=== PATIENT | female | born 1965 | race Caucasian/White ===

== ENCOUNTER 2017-11-19 15:22 | Inpatient (IN) | payer BC ==
[~2017-11-19] VITALS: Ht 172.7 cm; Wt 107.0 kg
[2017-11-19 15:53] VITALS: BP_SYST 125
[2017-11-19] MEDS ORDERED: NACL 0.9% 1,000 ML IV ONE (16:15)
[2017-11-19] MEDS ORDERED: ONDANSETRON HCL 4 MG/2 ML VIAL IVP ONE (16:15)
[2017-11-19] MEDS ORDERED: MORPHINE 2 MG/ML INJ. SYRINGE IVP ONE (16:15)
[2017-11-19 16:55] LABS: EOSINOPHILS # (AUTO) 0.2 K/uL (0.0-0.4); HEMOGLOBIN 15.5 g/dL (12.0-16.0)
[2017-11-19 17:00] LABS: RED BLOOD CELL COUNT(AUTO) 5.24 MIL/uL (4.2-6.2); WHITE BLOOD COUNT (AUTO) 17.6 K/uL (4.8-10.8)
[2017-11-19 17:01] LABS: HEMATOCRIT 46.3 % (36-48); MEAN CORPUSCULAR HEMOGLOBIN 30 pg (27-31); MEAN CORPUSCULAR HGB CONC 34 % (32-36); MEAN CORPUSCULAR VOLUME 88 fL (79.0-98.0); NEUTROPHILS % (AUTO) 73.1 % (40.0-70.0); PLATELET COUNT (AUTO) 391 K/uL (130-430); RED CELL DISTRIBUTION WIDTH 12.9 % (9.0-15.0)
[2017-11-19 17:02] LABS: BASOPHILS % (AUTO) 0.2 % (0.0-2.0); EOSINOPHILS % (AUTO) 1.3 % (0.0-4.0); LYMPHOCYTES # (AUTO) 3.6 K/uL (1.0-5.5); LYMPHOCYTES % (AUTO) 20.6 % (20.5-51.5); MONOCYTES # (AUTO) 0.8 K/uL (0.0-1.0); MONOCYTES % (AUTO) 4.8 % (1.7-9.3)
[2017-11-19 17:06] LABS: CALCIUM 8.7 mg/dL (8.4-11.0); CREATININE 1.34 mg/dL (0.55-1.30)
[2017-11-19 17:10] LABS: TOTAL BILIRUBIN 0.2 mg/dL (0.0-1.0)
[2017-11-19 17:15] LABS: POTASSIUM 2.7 mmol/L (3.5-5.1)
[2017-11-19] MEDS ORDERED: KCL 20 mEq in NS 1000 mL 1,000 ML IV ONE (17:30)
[2017-11-19] MEDS ORDERED: AMIT75TA2 PO (17:47)
[2017-11-19] MEDS ORDERED: LOSA50TA3 PO (17:47)
[2017-11-19] MEDS ORDERED: CEVI30CA4 PO (17:47)
[2017-11-19] MEDS ORDERED: [UNRECOGNIZED DRUG - OTHER] PO (17:47)
[2017-11-19] MEDS ORDERED: BUPR300T55 PO (17:47)
[2017-11-19] MEDS ORDERED: LEVO125T8 PO (17:47)
[2017-11-19] MEDS ORDERED: OMEP40CA33 PO (17:47)
[2017-11-19] MEDS ORDERED: HYDR25TA4 PO (17:47)
[2017-11-19] MEDS ORDERED: TOPI200T PO (17:47)
[2017-11-19] MEDS ORDERED: BECL10.62 IH (17:47)
[2017-11-19 18:14] LABS: BILIRUBIN,URINE NEGATIVE (NEGATIVE); BLOOD, URINE NEGATIVE (NEGATIVE); CLARITY/URINE HAZY (CLEAR); COLOR,URINE YELLOW (YELLOW); GLUCOSE,URINE NEGATIVE (NEGATIVE); KETONES,URINE TRACE (NEGATIVE); LEUKOCYTE ESTERASE ,URINE 1+ (NEGATIVE); NITRITE, URINE NEGATIVE (NEGATIVE); PH,URINE 5.5 (5.0-8.0); PROTEIN URINE NEGATIVE (NEGATIVE); UROBILINOGEN,URINE 0.2 (0.2-1.0)
[2017-11-19 18:29] LABS: BACTERIA,URINE FEW /HPF (None Seen); RBC,URINE 0-3 /HPF (0-3)
[2017-11-19 18:30] LABS: MUCUS,URINE None Seen /LPF (None Seen)
[2017-11-19] MEDS ORDERED: POTASSIUM CHLORIDE 20 MEQ/PKT PACKET PO ONE (18:30)
[2017-11-19 18:42] VITALS: BP_SYST 131
[2017-11-19] MEDS ORDERED: MORPHINE 2 MG/ML INJ. SYRINGE IVP PRN (19:30)
[2017-11-19 19:50] VITALS: BP_SYST 106
[2017-11-19] MEDS ORDERED: ALBUTEROL MDI INHALATION 8 GM INH INH PRN (20:30)
[2017-11-19] MEDS: LEVOFLOXACIN 500 MG/D5W 100 ML IV SCH (20:55)
[2017-11-19] MEDS: TOPIRAMATE 100 MG TABLET(Topamax) PO SCH (20:55)
[2017-11-19] MEDS ORDERED: AMITRIPTYLINE HCL 10 MG TABLET (ELAVIL) ONE (20:58)
[2017-11-19] MEDS ORDERED: AMITRIPTYLINE HCL 10 MG TABLET (ELAVIL) PO ONE (22:00)
[2017-11-19] MEDS: metroNIDAZOLE 500 mg/NS 100 ML IV SCH (22:36)
[2017-11-20 00:45] VITALS: BP_SYST 106
[2017-11-20] MEDS: LEVOTHYROXINE SODIUM 0.125 MG TABLET PO SCH (06:33)
[2017-11-20] MEDS: metroNIDAZOLE 500 mg/NS 100 ML IV SCH ×3 (06:34→21:57)
[2017-11-20] MEDS: HYDROmorphone 1 MG INJ. 1 MG/ML AMPUL IVP PRN ×2 (06:40→10:48)
[2017-11-20 06:57] LABS: BASOPHILS % (AUTO) 0.6 % (0.0-2.0); EOSINOPHILS # (AUTO) 0.3 K/uL (0.0-0.4); EOSINOPHILS % (AUTO) 3.9 % (0.0-4.0); HEMATOCRIT 37.6 % (36-48); HEMOGLOBIN 13.1 g/dL (12.0-16.0); LYMPHOCYTES # (AUTO) 2.4 K/uL (1.0-5.5); LYMPHOCYTES % (AUTO) 32.7 % (20.5-51.5); MEAN CORPUSCULAR HEMOGLOBIN 32 pg (27-31); MEAN CORPUSCULAR HGB CONC 35 % (32-36); MEAN CORPUSCULAR VOLUME 91 fL (79.0-98.0); MONOCYTES # (AUTO) 0.4 K/uL (0.0-1.0); MONOCYTES % (AUTO) 6.1 % (1.7-9.3); NEUTROPHILS # (AUTO) 4.2 K/uL (1.8-7.7); NEUTROPHILS % (AUTO) 56.7 % (40.0-70.0); PLATELET COUNT (AUTO) 242 K/uL (130-430); RED BLOOD CELL COUNT(AUTO) 4.12 MIL/uL (4.2-6.2); RED CELL DISTRIBUTION WIDTH 12.9 % (9.0-15.0); WHITE BLOOD COUNT (AUTO) 7.3 K/uL (4.8-10.8)
[2017-11-20 07:02] LABS: BILIRUBIN,DIRECT 0.1 mg/dL (0.0-0.3); CREATININE 1.03 mg/dL (0.55-1.30); POTASSIUM 3.6 mmol/L (3.5-5.1); THYROID STIMULATING HORMONE 1.48 uIu/mL (0.34-4.82); TOTAL BILIRUBIN 0.3 mg/dL (0.0-1.0)
[2017-11-20 08:00] VITALS: BP_SYST 126
[2017-11-20] MEDS: PANTOPRAZOLE SODIUM 40 MG/VIAL (PROTONIX) IVP SCH (08:24)
[2017-11-20] MEDS: TOPIRAMATE 100 MG TABLET(Topamax) PO SCH ×2 (08:25→20:24)
[2017-11-20] MEDS: LOSARTAN POTASSIUM 50 MG TABLET (COZAAR) PO SCH (08:25)
[2017-11-20] MEDS: buPROPion HCL 150 MG XL TAB PO SCH (08:25)
[2017-11-20] MEDS ORDERED: DIATR MEGLU/DIATRIZ SOD 30 ML SOLUTION PO ONE (09:34)
[2017-11-20] MEDS ORDERED: IOHEXOL 100 ML IV ONE (12:16)
[2017-11-20] MEDS: KCL 20 mEq in NS 1000 mL 1,000 ML IV SCH ×3 (14:20→21:56)
[2017-11-20] MEDS: EXCEDRIN EXTRA STRENGTH PO PRN (14:22)
[2017-11-20 14:24] VITALS: BP_SYST 122
[2017-11-20 15:58] VITALS: BP_SYST 113
[2017-11-20] MEDS: ONDANSETRON HCL 4 MG/2 ML VIAL IVP PRN (17:55)
[2017-11-20] MEDS: HYDROcodone/ACETAMIN 5-325 MG TAB (NORCO/ VICODIN) PO PRN (17:56)
[2017-11-20 20:00] VITALS: BP_SYST 111
[2017-11-20] MEDS: LEVOFLOXACIN 500 MG/D5W 100 ML IV SCH (20:25)
[2017-11-20] MEDS ORDERED: AMITRIPTYLINE HCL 10 MG TABLET (ELAVIL) ONE ×2 (21:51→21:54)
[2017-11-20] MEDS ORDERED: AMITRIPTYLINE HCL 25 MG TABLET (ELAVIL) ONE (21:55)
[2017-11-20] MEDS: AMITRIPTYLINE HCL 10 MG TABLET (ELAVIL) PO SCH (22:00)
[2017-11-21 00:33] VITALS: BP_SYST 100
[2017-11-21 04:00] VITALS: BP_SYST 108
[2017-11-21] MEDS: metroNIDAZOLE 500 mg/NS 100 ML IV SCH ×2 (05:23→14:50)
[2017-11-21] MEDS: LEVOTHYROXINE SODIUM 0.125 MG TABLET PO SCH (06:05)
[2017-11-21] MEDS: HYDROcodone/ACETAMIN 5-325 MG TAB (NORCO/ VICODIN) PO PRN ×3 (06:06→15:58)
[2017-11-21 07:08] LABS: PROTHROMBIN TIME 10.2 SECS (9.5-12.5)
[2017-11-21 07:16] LABS: CREATININE 0.96 mg/dL (0.55-1.30); POTASSIUM 3.8 mmol/L (3.5-5.1)
[2017-11-21 07:17] LABS: BASOPHILS % (AUTO) 0.6 % (0.0-2.0); EOSINOPHILS # (AUTO) 0.3 K/uL (0.0-0.4); EOSINOPHILS % (AUTO) 3.9 % (0.0-4.0); HEMOGLOBIN 12.8 g/dL (12.0-16.0); LYMPHOCYTES # (AUTO) 2.4 K/uL (1.0-5.5); LYMPHOCYTES % (AUTO) 34.2 % (20.5-51.5); MEAN CORPUSCULAR HEMOGLOBIN 31 pg (27-31); MEAN CORPUSCULAR HGB CONC 34 % (32-36); MEAN CORPUSCULAR VOLUME 91 fL (79.0-98.0); MONOCYTES # (AUTO) 0.4 K/uL (0.0-1.0); MONOCYTES % (AUTO) 5.9 % (1.7-9.3); NEUTROPHILS % (AUTO) 55.4 % (40.0-70.0); PLATELET COUNT (AUTO) 238 K/uL (130-430); RED BLOOD CELL COUNT(AUTO) 4.17 MIL/uL (4.2-6.2); RED CELL DISTRIBUTION WIDTH 12.9 % (9.0-15.0); WHITE BLOOD COUNT (AUTO) 7.1 K/uL (4.8-10.8)
[2017-11-21 08:20] VITALS: BP_SYST 122
[2017-11-21] MEDS: KCL 20 mEq in NS 1000 mL 1,000 ML IV SCH ×2 (08:40→18:04)
[2017-11-21] MEDS: TOPIRAMATE 100 MG TABLET(Topamax) PO SCH ×2 (08:41→20:53)
[2017-11-21] MEDS: buPROPion HCL 150 MG XL TAB PO SCH (08:41)
[2017-11-21] MEDS: LOSARTAN POTASSIUM 50 MG TABLET (COZAAR) PO SCH (08:42)
[2017-11-21] MEDS: PANTOPRAZOLE SODIUM 40 MG/VIAL (PROTONIX) IVP SCH (08:43)
[2017-11-21] MEDS: ONDANSETRON HCL 4 MG/2 ML VIAL IVP PRN ×2 (10:17→18:47)
[2017-11-21 11:26] VITALS: BP_SYST 120
[2017-11-21 15:54] VITALS: BP_SYST 104
[2017-11-21] MEDS ORDERED: GOLYTELY / COLYTE SOLUTION 4 LITERS PO ONE (18:00)
[2017-11-21 20:00] VITALS: BP_SYST 125
[2017-11-21] MEDS: LORazepam 2 MG/ML VIAL IM PRN (20:52)
[2017-11-21] MEDS: AMITRIPTYLINE HCL 10 MG TABLET (ELAVIL) PO SCH (20:53)
[2017-11-21] MEDS: LEVOFLOXACIN 500 MG/D5W 100 ML IV SCH (20:53)
[2017-11-22 00:10] VITALS: BP_SYST 133
[2017-11-22] MEDS: metroNIDAZOLE 500 mg/NS 100 ML IV SCH ×4 (01:16→21:37)
[2017-11-22] MEDS: KCL 20 mEq in NS 1000 mL 1,000 ML IV SCH ×3 (06:13→19:45)
[2017-11-22] MEDS: LEVOTHYROXINE SODIUM 0.125 MG TABLET PO SCH (06:14)
[2017-11-22] MEDS ORDERED: MIDAZOLAM HCL 5 MG/5 ML VIAL ONE (06:16)
[2017-11-22] MEDS ORDERED: SIMETHICONE 40 MG/0.6 ML ML ONE ×2 (06:17→06:30)
[2017-11-22 07:04] LABS: PROTHROMBIN TIME 10.4 SECS (9.5-12.5)
[2017-11-22] MEDS: MIDAZOLAM HCL 5 MG/5 ML VIAL ONE ×4 (07:12→07:20)
[2017-11-22] MEDS: MEPERIDINE HCL/PF 100 MG/ML AMP ONE ×3 (07:12→07:20)
[2017-11-22 07:13] LABS: CREATININE 1.04 mg/dL (0.55-1.30); POTASSIUM 3.4 mmol/L (3.5-5.1)
[2017-11-22 08:30] VITALS: BP_SYST 120
[2017-11-22] MEDS: MILK OF MAGNESIA 30 ML UDC PO SCH ×2 (09:00→11:00)
[2017-11-22] MEDS: TOPIRAMATE 100 MG TABLET(Topamax) PO SCH ×2 (09:47→21:01)
[2017-11-22] MEDS: PANTOPRAZOLE SODIUM 40 MG/VIAL (PROTONIX) IVP SCH (09:47)
[2017-11-22] MEDS: LOSARTAN POTASSIUM 50 MG TABLET (COZAAR) PO SCH (09:48)
[2017-11-22] MEDS: buPROPion HCL 150 MG XL TAB PO SCH (09:48)
[2017-11-22] MEDS: EXCEDRIN EXTRA STRENGTH PO PRN (11:17)
[2017-11-22 11:22] VITALS: BP_SYST 124
[2017-11-22] MEDS: HYDROcodone/ACETAMIN 5-325 MG TAB (NORCO/ VICODIN) PO PRN (13:29)
[2017-11-22] MEDS: ONDANSETRON HCL 4 MG/2 ML VIAL IVP PRN ×2 (14:59→19:44)
[2017-11-22 15:39] VITALS: BP_SYST 122
[2017-11-22] MEDS ORDERED: POTASSIUM CHLORIDE 20 MEQ TAB.PRT.SR PO ONE (16:30)
[2017-11-22 16:49] LABS: BASOPHILS # (AUTO) 0.1 K/uL (0.0-0.2); BASOPHILS % (AUTO) 1.2 % (0.0-2.0); EOSINOPHILS # (AUTO) 0.3 K/uL (0.0-0.4); EOSINOPHILS % (AUTO) 3.7 % (0.0-4.0); HEMATOCRIT 38.1 % (36-48); HEMOGLOBIN 12.6 g/dL (12.0-16.0); LYMPHOCYTES # (AUTO) 2.7 K/uL (1.0-5.5); LYMPHOCYTES % (AUTO) 34.1 % (20.5-51.5); MEAN CORPUSCULAR HEMOGLOBIN 30 pg (27-31); MEAN CORPUSCULAR HGB CONC 33 % (32-36); MEAN CORPUSCULAR VOLUME 91 fL (79.0-98.0); MONOCYTES # (AUTO) 0.5 K/uL (0.0-1.0); MONOCYTES % (AUTO) 6.1 % (1.7-9.3); NEUTROPHILS # (AUTO) 4.4 K/uL (1.8-7.7); NEUTROPHILS % (AUTO) 54.9 % (40.0-70.0); PLATELET COUNT (AUTO) 260 K/uL (130-430); RED BLOOD CELL COUNT(AUTO) 4.21 MIL/uL (4.2-6.2); RED CELL DISTRIBUTION WIDTH 13.4 % (9.0-15.0)
[2017-11-22] MEDS: LORazepam 2 MG/ML VIAL IM PRN (19:44)
[2017-11-22 20:00] VITALS: BP_SYST 122
[2017-11-22] MEDS: LEVOFLOXACIN 500 MG/D5W 100 ML IV SCH (20:59)
[2017-11-22] MEDS: AMITRIPTYLINE HCL 10 MG TABLET (ELAVIL) PO SCH (21:01)
[2017-11-23 00:11] VITALS: BP_SYST 126
[2017-11-23] MEDS: ONDANSETRON HCL 4 MG/2 ML VIAL IVP PRN ×4 (01:35→20:42)
[2017-11-23] MEDS: metroNIDAZOLE 500 mg/NS 100 ML IV SCH ×3 (05:18→22:06)
[2017-11-23] MEDS: LEVOTHYROXINE SODIUM 0.125 MG TABLET PO SCH (06:16)
[2017-11-23 07:08] LABS: CALCIUM 8.1 mg/dL (8.4-11.0); POTASSIUM 3.6 mmol/L (3.5-5.1)
[2017-11-23 07:15] LABS: BASOPHILS # (AUTO) 0.2 K/uL (0.0-0.2); BASOPHILS % (AUTO) 2.3 % (0.0-2.0); EOSINOPHILS # (AUTO) 0.3 K/uL (0.0-0.4); HEMATOCRIT 37.4 % (36-48); HEMOGLOBIN 12.8 g/dL (12.0-16.0); LYMPHOCYTES # (AUTO) 2.6 K/uL (1.0-5.5); LYMPHOCYTES % (AUTO) 36.1 % (20.5-51.5); MEAN CORPUSCULAR HEMOGLOBIN 31 pg (27-31); MEAN CORPUSCULAR HGB CONC 34 % (32-36); MEAN CORPUSCULAR VOLUME 91 fL (79.0-98.0); MONOCYTES # (AUTO) 0.5 K/uL (0.0-1.0); MONOCYTES % (AUTO) 6.6 % (1.7-9.3); NEUTROPHILS # (AUTO) 3.7 K/uL (1.8-7.7); PLATELET COUNT (AUTO) 242 K/uL (130-430); RED BLOOD CELL COUNT(AUTO) 4.12 MIL/uL (4.2-6.2); WHITE BLOOD COUNT (AUTO) 7.3 K/uL (4.8-10.8)
[2017-11-23] MEDS ORDERED: KCL 20 mEq in 100 mL (PREMIX) 100 ML IV ONE (07:30)
[2017-11-23 08:00] VITALS: BP_SYST 129
[2017-11-23] MEDS: KCL 20 mEq in NS 1000 mL 1,000 ML IV SCH ×2 (08:36→18:02)
[2017-11-23] MEDS: LORazepam 2 MG/ML VIAL IM PRN (08:37)
[2017-11-23] MEDS: buPROPion HCL 150 MG XL TAB PO SCH (08:37)
[2017-11-23] MEDS: PANTOPRAZOLE SODIUM 40 MG/VIAL (PROTONIX) IVP SCH (08:37)
[2017-11-23] MEDS: LOSARTAN POTASSIUM 50 MG TABLET (COZAAR) PO SCH (08:38)
[2017-11-23] MEDS: TOPIRAMATE 100 MG TABLET(Topamax) PO SCH ×2 (08:38→20:44)
[2017-11-23] MEDS: HYDROcodone/ACETAMIN 5-325 MG TAB (NORCO/ VICODIN) PO PRN ×2 (09:40→18:09)
[2017-11-23 12:00] VITALS: BP_SYST 110
[2017-11-23] MEDS: EXCEDRIN EXTRA STRENGTH PO PRN ×2 (14:39→20:43)
[2017-11-23 16:00] VITALS: BP_SYST 123
[2017-11-23] MEDS ORDERED: AMITRIPTYLINE HCL 25 MG TABLET (ELAVIL) ONE (20:37)
[2017-11-23] MEDS ORDERED: AMITRIPTYLINE HCL 10 MG TABLET (ELAVIL) ONE ×2 (20:38→20:41)
[2017-11-23] MEDS: LEVOFLOXACIN 500 MG/D5W 100 ML IV SCH (20:42)
[2017-11-23] MEDS: AMITRIPTYLINE HCL 10 MG TABLET (ELAVIL) PO SCH (20:44)
[2017-11-24 00:17] VITALS: BP_SYST 110
[2017-11-24] MEDS: HYDROcodone/ACETAMIN 5-325 MG TAB (NORCO/ VICODIN) PO PRN (04:19)
[2017-11-24] MEDS: KCL 20 mEq in NS 1000 mL 1,000 ML IV SCH (04:29)
[2017-11-24] MEDS: metroNIDAZOLE 500 mg/NS 100 ML IV SCH ×2 (05:34→14:55)
[2017-11-24] MEDS: ONDANSETRON HCL 4 MG/2 ML VIAL IVP PRN (05:34)
[2017-11-24] MEDS: LEVOTHYROXINE SODIUM 0.125 MG TABLET PO SCH (06:11)
[2017-11-24 07:25] LABS: WHITE BLOOD COUNT (AUTO) 7.7 K/uL (4.8-10.8)
[2017-11-24 07:27] LABS: CALCIUM 8.3 mg/dL (8.4-11.0); CREATININE 1.02 mg/dL (0.55-1.30); POTASSIUM 3.7 mmol/L (3.5-5.1)
[2017-11-24 07:34] LABS: HEMATOCRIT 39.6 % (36-48); HEMOGLOBIN 13.1 g/dL (12.0-16.0); MEAN CORPUSCULAR HEMOGLOBIN 30 pg (27-31); MEAN CORPUSCULAR HGB CONC 33 % (32-36); MEAN CORPUSCULAR VOLUME 91 fL (79.0-98.0); PLATELET COUNT (AUTO) 279 K/uL (130-430); PROTHROMBIN TIME 10.4 SECS (9.5-12.5); RED BLOOD CELL COUNT(AUTO) 4.35 MIL/uL (4.2-6.2)
[2017-11-24 08:09] VITALS: BP_SYST 126
[2017-11-24] MEDS: LOSARTAN POTASSIUM 50 MG TABLET (COZAAR) PO SCH (08:24)
[2017-11-24] MEDS: buPROPion HCL 150 MG XL TAB PO SCH (08:24)
[2017-11-24] MEDS: PANTOPRAZOLE SODIUM 40 MG/VIAL (PROTONIX) IVP SCH (08:24)
[2017-11-24] MEDS: TOPIRAMATE 100 MG TABLET(Topamax) PO SCH (08:24)
[2017-11-24] MEDS ORDERED: LORazepam 2 MG/ML VIAL IVP PRN (08:45)
[2017-11-24] MEDS: HYDROmorphone 1 MG INJ. 1 MG/ML AMPUL IVP PRN (09:22)
[2017-11-24 11:25] LABS: ATYPICAL LYMPHOCYTES % 0 % (0-0); BAND % (MANUAL) 0 % (0-6); BASOPHILS % (MANUAL) 0 % (0-2); EOSINOPHILS % (MANUAL) 9 % (0-7); LYMPHOCYTES % (MANUAL) 45 % (20-46); MONOCYTES % (MANUAL) 2 % (0-11)
[2017-11-24 12:37] VITALS: BP_SYST 118
[2017-11-24] MEDS ORDERED: LR 1,000 ML IV SCH (13:26)
[2017-11-24] MEDS ORDERED: HYDROmorphone 2 MG/ML VIAL IVP PRN ×2 (13:30)
[2017-11-24] MEDS ORDERED: MEPERIDINE HCL/PF 25 MG/ML DISP.SYRIN IVP PRN (13:30)
[2017-11-24] MEDS ORDERED: HYDROmorphone 1 MG INJ. 1 MG/ML AMPUL IVP PRN (13:30)
[2017-11-24 14:45] VITALS: BP_SYST 122
[2017-11-24 15:50] VITALS: BP_SYST 122
[2017-11-24] MEDS ORDERED: MIDAZOLAM HCL 5 MG/5 ML VIAL IVP ONE (18:24)
[2017-11-24] MEDS ORDERED: LR 1,000 ML IV.SOLN IV ONE (18:24)
[2017-11-24] MEDS ORDERED: PROPOFOL 200MG/ 20ML VIAL (DIPRIVAN) IV ONE (18:24)
== END 2017-11-24 18:25 | disposition home or self-care (01) | DRG 394 ==
LOC: SED 15:22 → STU 18:16 → SMU 11-20 15:20
PROVIDERS: ADMIT Internal Medicine; ATTEND Internal Medicine
PROC: 0DJD8ZZ Inspection of Lower Intestinal Tract, Via Natural or Artificial Opening Endoscopic (ICD-10-PCS; principal; 2017-11-22 07:00)
PROC: 0DBP8ZX Excision of Rectum, Via Natural or Artificial Opening Endoscopic, Diagnostic (ICD-10-PCS; 2017-11-24)
DX: K37 Unspecified appendicitis (principal); A09 Infectious gastroenteritis and colitis, unspecified; K62.6 Ulcer of anus and rectum; S36.60XA Unspecified injury of rectum, initial encounter; E06.3 Autoimmune thyroiditis; G43.909 Migraine, unspecified, not intractable, without status migrainosus; J45.909 Unspecified asthma, uncomplicated; E66.9 Obesity, unspecified; K64.8 Other hemorrhoids; E03.9 Hypothyroidism, unspecified; F41.9 Anxiety disorder, unspecified; I99.8 Other disorder of circulatory system; K62.89 Other specified diseases of anus and rectum; I12.9 Hypertensive chronic kidney disease with stage 1 through stage 4 chronic kidney disease, or unspecified chronic kidney disease; N18.9 Chronic kidney disease, unspecified; E87.6 Hypokalemia; I88.0 Nonspecific mesenteric lymphadenitis; R73.9 Hyperglycemia, unspecified; K21.9 Gastro-esophageal reflux disease without esophagitis; X58.XXXA Exposure to other specified factors, initial encounter; Y93.89 Activity, other specified; Y92.89 Other specified places as the place of occurrence of the external cause; Y99.8 Other external cause status; Z90.710 Acquired absence of both cervix and uterus; Z90.49 Acquired absence of other specified parts of digestive tract; Z68.35 Body mass index [BMI] 35.0-35.9, adult; Z88.0 Allergy status to penicillin; Z88.8 Allergy status to other drugs, medicaments and biological substances; Z79.899 Other long term (current) drug therapy
CPT/HCPCS: 36415; 45380; 71045; 76770; 76830-TC; 76857; 80048; 80053; 80076; 81000-TC; 83690-TC; 83735-TC; 84443-TC; 85007; 85025; 85027; 85610-TC; 85730-TC; 87045-TC; 87046; 87081; 87086; 88305; 96361; 96374; 96375; 99285; C9113; J1170; J1956; J2060; J2175; J2250; J2270; J2405; J2704; J3480; J3490; J7120; Q9964; Q9967

== ENCOUNTER 2018-06-27 17:39 | Emergency (ER) | payer BC ==
[~2018-06-27] VITALS: Ht 175.3 cm; Wt 107.0 kg
[~2018-06-27 17:39] MED LIST: AMIT75TA2 PO; BECL10.62 IH; BUPR300T55 PO; CEVI30CA4 PO; HYDR25TA4 PO; LEVO125T8 PO; LOSA50TA3 PO; OMEP40CA33 PO; TOPI200T PO; [UNRECOGNIZED DRUG - OTHER] PO
[2018-06-27 17:53] VITALS: BP_SYST 129
--- NOTE | 2018-06-27 18:05 | NUR ---
Patient to ER bed 6 to gown for evaluation. Side rails up. Report given to Levi TERRY.
--- NOTE | 2018-06-27 18:11 | NUR ---
Patient is awake, alert, and oriented x4. Patient is complaining of right lower quadrant aching abdominal pain 6/10 x1 week, throbbing back pain 9/10 x2 weeks, nausea, vomiting, diarrhea, denies chest pain. Patient denies smoking, casual drinker.
[2018-06-27] MEDS ORDERED: NACL 0.9% 1,000 ML IV ONE ×3 (18:18→20:30)
[2018-06-27] MEDS ORDERED: DIPHENHYDRAMINE INJ 50 MG/ML VIAL IVP ONE (18:30)
[2018-06-27] MEDS ORDERED: MORPHINE 4 MG/ML INJ. SYRINGE IVP ONE ×2 (18:30→20:30)
[2018-06-27] MEDS ORDERED: ONDANSETRON HCL 4 MG/2 ML VIAL IVP ONE ×2 (18:30→21:00)
--- NOTE | 2018-06-27 18:55 | NUR ---
Patient transported to radiology via gurney, accompanied by library circulation technician.
[2018-06-27 19:02] LABS: CALCIUM 9.7 mg/dL (8.4-11.0); CREATININE 1.39 mg/dL (0.55-1.30)
[2018-06-27 19:03] LABS: RED BLOOD CELL COUNT(AUTO) 5.05 MIL/uL (4.2-6.2); WHITE BLOOD COUNT (AUTO) 12.6 K/uL (4.8-10.8)
[2018-06-27 19:04] LABS: BASOPHILS # (AUTO) 0.1 K/uL (0.0-0.2); BASOPHILS % (AUTO) 0.8 % (0.0-2.0); EOSINOPHILS # (AUTO) 0.2 K/uL (0.0-0.4); EOSINOPHILS % (AUTO) 1.3 % (0.0-4.0); HEMATOCRIT 45.5 % (36-48); HEMOGLOBIN 15.3 g/dL (12.0-16.0); LYMPHOCYTES # (AUTO) 3.1 K/uL (1.0-5.5); LYMPHOCYTES % (AUTO) 24.4 % (20.5-51.5); MEAN CORPUSCULAR HEMOGLOBIN 30 pg (27-31); MEAN CORPUSCULAR HGB CONC 34 % (32-36); MEAN CORPUSCULAR VOLUME 90 fL (79.0-98.0); MONOCYTES # (AUTO) 0.7 K/uL (0.0-1.0); MONOCYTES % (AUTO) 5.6 % (1.7-9.3); NEUTROPHILS # (AUTO) 8.5 K/uL (1.8-7.7); NEUTROPHILS % (AUTO) 67.9 % (40.0-70.0); PLATELET COUNT (AUTO) 368 K/uL (130-430); RED CELL DISTRIBUTION WIDTH 13.5 % (9.0-15.0)
--- NOTE | 2018-06-27 19:06 | NUR ---
Returned from radiology, back to [facility].
[2018-06-27 19:07] LABS: TOTAL BILIRUBIN 0.3 mg/dL (0.0-1.0)
--- NOTE | 2018-06-27 19:07 | NUR ---
Report given to MARA Santiago for continuation of care.
[2018-06-27 19:08] LABS: POTASSIUM 2.8 mmol/L (3.5-5.1)
[2018-06-27] MEDS ORDERED: KCL 20 mEq in 100 mL (PREMIX) 100 ML IV ONE (19:15)
--- NOTE | 2018-06-27 19:30 | NUR ---
Pt C/O burning at IV site after the administration of Potassium @50ml/hr. IV pump infusion lowered to 30ml/hr. Pt is tolerating infusion well, will continue to assess.
[2018-06-27 20:08] LABS: BILIRUBIN,URINE NEGATIVE (NEGATIVE); BLOOD, URINE NEGATIVE (NEGATIVE); CLARITY/URINE CLEAR (CLEAR); COLOR,URINE YELLOW (YELLOW); GLUCOSE,URINE NEGATIVE (NEGATIVE); KETONES,URINE NEGATIVE (NEGATIVE); LEUKOCYTE ESTERASE ,URINE TRACE (NEGATIVE); NITRITE, URINE NEGATIVE (NEGATIVE); PROTEIN URINE NEGATIVE (NEGATIVE); UROBILINOGEN,URINE 0.2 (0.2-1.0)
[2018-06-27 20:16] LABS: BACTERIA,URINE FEW /HPF (None Seen); RBC,URINE 0-3 /HPF (0-3)
[2018-06-27] MEDS ORDERED: LEVOFLOXACIN 500 MG/D5W 100 ML IV ONE (20:30)
--- NOTE | 2018-06-27 20:30 | NUR ---
CARYN Gaming at bedside examining patient.
[2018-06-27] MEDS ORDERED: POTASSIUM CHLORIDE 20 MEQ TAB.PRT.SR PO ONE (20:45)
[2018-06-27] MEDS ORDERED: ONDANSETRON HCL 4 MG/2 ML VIAL ONE (21:05)
--- NOTE | 2018-06-27 21:11 | NUR ---
Pt is resting quietly in bed and has been medicated for back pain and nausea. Will continue to monitor.
[2018-06-27] MEDS ORDERED: TOPI200C6 PO (21:52)
[2018-06-27] MEDS ORDERED: SUCR1TAB78 PO (21:52)
[2018-06-27 23:12] VITALS: BP_SYST 128
--- NOTE | 2018-06-27 23:12 | NUR ---
Patient given written and verbal discharge instructions and verbalizes understanding. ER MD Gaming discussed with patient the results and treatment provided. Patient in stable condition. ID arm band removed. IV catheter removed intact and dressing applied, no active bleeding. Rx of Macrodantin, [place] given. Patient educated on pain management and to follow up with PMD. Pain Scale 0. Opportunity for questions provided and answered. Medication side effect fact sheet provided.
== END 2018-06-27 23:12 | disposition home or self-care (01) ==
LOC: SED 17:39
DX: N17.9 Acute kidney failure, unspecified (principal); N12 Tubulo-interstitial nephritis, not specified as acute or chronic; E87.6 Hypokalemia; G43.909 Migraine, unspecified, not intractable, without status migrainosus; Z90.49 Acquired absence of other specified parts of digestive tract; Z90.710 Acquired absence of both cervix and uterus; Z88.0 Allergy status to penicillin; Z88.8 Allergy status to other drugs, medicaments and biological substances; Z79.899 Other long term (current) drug therapy
CPT/HCPCS: 36415; 74176; 80053; 81000; 82150; 83605; 83690; 85025; 87040; 96361; 96365; 96366; 96368; 96375; 96376; 99284; J1200; J1956; J2270; J2405; J3480; J7030